=== PATIENT | female | born 1995 | race Caucasian/White ===

== ENCOUNTER 2017-09-29 19:08 | Emergency (ER) | payer OTHER ==
[2017-09-29] MEDS ORDERED: Lidocaine 1% with EPINEPHrine 1:100,000 50 ML MDV INFILT ONE (20:01)
--- NOTE | 2017-09-29 20:02 | EDM.PDOC ---
ED HPI GENERAL MEDICAL PROBLEM - General Chief Complaint: Skin Complaint Stated Complaint: FISH HOOK IN HEAD Time Seen by Provider: 09/29/17 19:25 Source of Information: Reports: Patient History Limitations: Reports: No Limitations - History of Present Illness INITIAL COMMENTS - FREE TEXT/NARRATIVE: 22 yo female presents with fish hook in right scalp. earlier this evening. generally healthy. up to date on tetanus - Related Data Allergies Allergy/AdvReac Type Severity Reaction Status Date / Time No Known Allergies Allergy Verified 09/29/17 19:26 Home Meds: Home Meds Norgestimate-Ethinyl Estradiol [Sprintec 28 Day Tablet] 09/29/17 [History] Past Medical History - Past Health History Medical/Surgical History: Denies Medical/Surgical History - Past Surgical History HEENT Surgical History: Reports: Oral Surgery Social & Family History - Tobacco Use Smoking Status *Q: Never Smoker ED ROS GENERAL - Review of Systems Review Of Systems: See Below Constitutional: Denies: Fever, Chills Respiratory: Denies: Shortness of Breath Cardiovascular: Denies: Chest Pain ED EXAM, SKIN/RASH Exam: See Below Exam Limited By: No Limitations General Appearance: Alert, WD/WN, No Apparent Distress, Other (exam limited to scalp) ED SKIN PROCEDURES - Additional/Other Procedure(s) Other (Free Text) Procedure(s): fish hook removal area cleaned with alcohol. Lidocaine 1% with epi infiltrated at base of the hook. hook removed with needle razo. bleeding controlled with pressure. pt instructed to wash scalp with soapy water on return home. pt tolerated well Course - Vital Signs Last Recorded V/S: Last Vital Signs Temp 37.3 C 09/29/17 19:28 Pulse 87 09/29/17 19:28 Resp 16 09/29/17 19:28 BP 149/79 H 09/29/17 19:28 Pulse Ox 97 09/29/17 19:28 - Orders/Labs/Meds Meds: Medications Discontinued Medications Generic Name Dose Route Start Last Admin Trade Name Michela PRN Reason Stop Dose Admin Lidocaine/Epinephrine 1 ml 09/29/17 20:01 Xylocaine 1% With Epinephrine 1:100,000 INFILT 09/29/17 20:02 ONETIME ONE Departure - Departure Time of Disposition: 20:01 Disposition: Home, Self-Care 01 Clinical Impression: Fish hook injury of scalp Qualifiers: Encounter type: initial encounter Qualified Code(s): S09.90XA - Unspecified injury of head, initial encounter - Discharge Information Instructions: Puncture Wound Referrals: PCP,None [Primary Care Provider] - Forms: ED Department Discharge Additional Instructions: wash puncture site with warm soapy water
== END 2017-09-29 20:16 | disposition home or self-care (01) ==
LOC: JP.ED 19:08
DX: S00.05XA Superficial foreign body of scalp, initial encounter (principal); W45.8XXA Other foreign body or object entering through skin, initial encounter
CPT/HCPCS: 99283